=== PATIENT | female | born 1940 | race Caucasian/White ===

== ENCOUNTER → 2017-11-20 | Outpatient (CLI) | payer MEDICARE ==
--- NOTE | 2017-11-20 10:40 | Diagnostic Imaging Report ---
PROCEDURE:HIP RIGHT 2-3 VW (+/- PELVIS) TECHNIQUE:AP and frog-leg lateral views right hip INDICATION:Right hip pain COMPARISON:None. FINDINGS: The right hip and regional skeleton are intact and in anatomic alignment. Mild joint space narrowing, subchondral sclerosis and marginal osteophytosis. No erosion or periosteal reaction. CONCLUSION: Mild right hip osteoarthritis. Dictated by: Marcel Ly M.D. on 11/20/2017 at 10:42 Electronically approved by: Marcel Ly M.D. on 11/20/2017 at 10:42
== END ==
LOC: RAD 09:42
PROVIDERS: ATTEND Family Medicine
DX: M25.551 Pain in right hip (principal)